=== PATIENT | male | born 1955 | race Caucasian/White ===

== ENCOUNTER 2018-01-01 04:20 | Emergency (ER) | payer OTHER ==
[~2018-01-01] VITALS: Ht 175.3 cm; Wt 75.0 kg
[2018-01-01] MEDS ORDERED: HydrALAZINE HCL 25 MG TABLET PO ONE (04:45)
[2018-01-01 06:17] VITALS: BP 175/94
== END 2018-01-01 06:21 | disposition home or self-care (01) ==
LOC: EMS 04:22
DX: I10 Essential (primary) hypertension (principal); F12.90 Cannabis use, unspecified, uncomplicated
CPT/HCPCS: 93005; 99283